=== PATIENT | male | born 1955 | race Caucasian/White ===

== ENCOUNTER 2017-02-22 05:49 | Inpatient (IN) | payer MEDICARE ==
--- NOTE | 2017-02-18 14:47 | MH ---
cc: Jagdish KENYON M.D. DATE OF ADMISSION: 02/22/2017 ADMISSION DIAGNOSIS Osteoarthritic degeneration right knee, now being admitted for right total knee arthroplasty. HISTORY OF PRESENT ILLNESS This is a pleasant 61-year-old diabetic male who is being admitted today for right total knee arthroplasty due to severe painful osteoarthritic degeneration right knee. OTHER PAST HISTORY 1. History of arthritis. 2. Diabetes. 3. Hypertension. 4. Chronic back pain. CURRENT MEDICATIONS Include: 1. Metformin. 2. Cholesterol medicine. 3. Norvasc. 4. Crestor. 5. Percocet for chronic back pain. PAST SURGICAL HISTORY 1. He has previously had two spinal fusions. 2. Surgery in the right knee in the past. SOCIAL HISTORY He smokes cigarettes but does not drink. He is advised to quit. REVIEW OF SYSTEMS Noncontributory. FAMILY HISTORY Noncontributory. ALLERGIES PENICILLIN AND LISINOPRIL. PHYSICAL EXAMINATION GENERAL: We find a 61-year-old male, well-developed, well-nourished, oriented x3, complaining of pain in his right knee. VITAL SIGNS: Blood pressure 108/73, pulse 72 and regular, respiration 14, temperature 98.8. HEENT: Eyes PERRLA, EOMI. Ears, nose, mouth clear. NECK: Supple. LUNGS: Clear. HEART: Regular rate. ABDOMEN: Soft. Positive bowel sounds, nontender. EXTREMITIES: Reveals his right knee to be tender with crepitance on range of motion and loss of motion. IMPRESSION AT THIS TIME Severe painful osteoarthritic degeneration, right knee. PLAN Admission for right total knee arthroplasty. The patient understands the procedure well and risks involved and understands to use Hibiclens scrub and Bactroban preoperatively and is given prescription for postoperative anticoagulation control in the office. He does have pain medication that he takes at home on a regular basis. MD MENDOZA Sparrow/TLL /1:56 PM /2:31 PM
[~2017-02-22] VITALS: Ht 172.7 cm; Wt 105.0 kg
[~2017-02-22 05:49] MED LIST: AMLO10TA2 PO; ATEN50TA7 PO; BACTOIN EACH NARE; DIAZ10TA PO; FENO160T PO; METF1000 PO; PERC10TA27 PO
[2017-02-22] MEDS ORDERED: SODIUM CHLORID 0.9% 500 ML IV PRN (06:15)
[2017-02-22] MEDS ORDERED: INSULIN HUMAN REGULAR 1,000 UNITS/10 ML VIAL SQ PRN (06:15)
[2017-02-22] MEDS ORDERED: POVIDONE IODINE 5% (ANTISEPSIS KIT) 4 APPLICATIONS EACH NARE PRN (06:15)
[2017-02-22] MEDS ORDERED: CHLORHEXIDINE GLUCONATE 2 % 1 PACK (2 CLOTHS) TOPICAL PRN (06:15)
[2017-02-22] MEDS ORDERED: METOPROLOL TARTRATE 25 MG TAB PO PRN (06:15)
[2017-02-22] MEDS ORDERED: LACTATED RINGER'S 1000 ML IV PRN (06:15)
[2017-02-22] MEDS ORDERED: CLINDAMYCIN 900 MG/NS 100 ML IV SCH ×2 (06:30)
[2017-02-22] MEDS ORDERED: TRANEXAMIC ACID INJ 1,150 MG in SODIUM CHLORIDE 0.9% INJ 100 ML IV SCH (06:30)
[2017-02-22] MEDS ORDERED: DEXAMETHASONE SOD PHOS 20 MG/5 ML VIAL IV PRN (06:30)
[2017-02-22] MEDS ORDERED: TRANEXAMIC ACID INJ 1,050 MG in SODIUM CHLORIDE 0.9% INJ 100 ML IV SCH ×4 (06:30)
[2017-02-22] MEDS ORDERED: VANCOMYCIN 1000 MG/NS 250 ML (for <70 kg) IV SCH ×2 (06:30)
[2017-02-22] MEDS ORDERED: CHLORHEXIDINE GLUCONATE 4% SOLN 120 ML BTL TOPICAL SCH (06:30)
[2017-02-22] MEDS ORDERED: EXPAREL PERI-ARTICULAR INJECTION (TOTAL VOL. 120 ML) P-ARTICULR SCH ×2 (06:30)
[2017-02-22] MEDS ORDERED: GENTAMICIN SULFATE 80 MG/2 ML VIAL ONE (06:57)
[2017-02-22 07:08] LABS: AUTOMATED NEUTROPHIL # 6.1 TH/MM3 (1.8-7.7); BASOPHIL # 0.1 TH/MM3 (0-0.2); BASOPHIL % 0.6 % (0.0-2.0); EOSINOPHIL # 0.3 TH/MM3 (0-0.4); EOSINOPHIL % 2.9 % (0.0-4.0); HEMATOCRIT 42.8 % (39.0-51.0); HEMOGLOBIN 14.2 GM/DL (13.0-17.0); LYMPH % 24.2 % (9.0-44.0); LYMPHOCYTE # 2.3 TH/MM3 (1.0-4.8); MEAN CELL VOLUME 79.7 FL (80.0-100.0); MEAN CORPUSCULAR HEMOGLOBIN 26.4 PG (27.0-34.0); MEAN CORPUSCULAR HGB CONC 33.2 % (32.0-36.0); MEAN PLATELET VOLUME 8.8 FL (7.0-11.0); MONO % 7.5 % (0.0-8.0); MONOCYTE # 0.7 TH/MM3 (0-0.9); NEUT % 64.8 % (16.0-70.0); PLATELET COUNT 238 TH/MM3 (150-450); RED BLOOD COUNT 5.37 MIL/MM3 (4.50-5.90); RED CELL DISTRIBUTION WIDTH 15.8 % (11.6-17.2); WHITE BLOOD COUNT 9.4 TH/MM3 (4.0-11.0)
[2017-02-22] MEDS ORDERED: BUPIVACAINE HCL PF 0.5% 30 ML VIAL ONE (07:20)
[2017-02-22] MEDS ORDERED: ACETAMINOPHEN 1000 MG/100 ML 100 ML IV ONE (07:37)
[2017-02-22] MEDS ORDERED: methylPREDNISolone ACETATE 40 MG/ML VIAL IM ONE (08:00)
[2017-02-22] MEDS ORDERED: TEMAZEPAM 15 MG CAP PO PRN (08:15)
[2017-02-22] MEDS ORDERED: diphenhydrAMINE HCL 50 MG/ML VIAL IV PUSH PRN (08:15)
[2017-02-22] MEDS ORDERED: MORPHINE SULFATE 4 MG/ML INJ IV PUSH PRN (08:15)
[2017-02-22] MEDS ORDERED: oxyCODONE/ACETAMINOPHEN 10 MG/325 MG TAB PO PRN (08:15)
[2017-02-22] MEDS ORDERED: NALOXONE HCL 0.4 MG/ML AMP IV PUSH PRN (08:15)
[2017-02-22] MEDS ORDERED: TRANEXAMIC ACID INJ 0 MG in SODIUM CHLORIDE 0.9% INJ 100 ML IV SCH (08:15)
[2017-02-22] MEDS ORDERED: ACETAMINOPHEN 325 MG TAB PO PRN (08:15)
[2017-02-22] MEDS ORDERED: Post-op Orders (for Pharmacy) MISC XX ONE (08:15)
[2017-02-22] MEDS ORDERED: ONDANSETRON HCL 4 MG/2 ML VIAL IVP PRN (08:15)
[2017-02-22] MEDS ORDERED: SODIUM CHLORIDE 0.9% FLUSH 5 ML FLUSH IVF PRN (08:15)
[2017-02-22] MEDS ORDERED: CPMMACHINE (08:18)
[2017-02-22] MEDS ORDERED: WALKER WHEELS/F1 MIS (08:18)
[2017-02-22] MEDS ORDERED: ADJUSTABLE COMM1 MIS (08:18)
--- NOTE | 2017-02-22 08:19 | HHI.FF ---
Face to Face Verification Diagnosis: (1) Status post total right knee replacement Physical Therapy Gait training Knee: Total knee, Protocol: Right, Full weight bearing Canvas Knee Splint: When in bed & 2 pillows btw thighs Nursing RN: 3 days/week x 2 weeks Nursing: Dressing changes Dressing Changes: Daily dressing change, 4x4s, Gauze, Paper tape I have seen patient Moisés Tracy on 02/22/17. My clinical findings support the need for the requested home health care services because: Limited ability to care for self High risk of falls I certify that my clinical findings support that this patient is homebound because: Unsteady gait/balance Jagdish May MD Feb 22, 2017 08:19
[2017-02-22] MEDS ORDERED: TOBRAMYCIN SULFATE 1200 MG VIAL ONE (09:53)
--- NOTE | 2017-02-22 10:55 | MP ---
cc: Jagdish KENYON M.D. DATE OF SURGERY 02/22/2017 PREOPERATIVE DIAGNOSIS Osteoarthritic degeneration right knee. POSTOPERATIVE DIAGNOSIS Osteoarthritic degeneration right knee. SURGERY PERFORMED Right total knee arthroplasty using Consensus components, size 5 femur, 4 tibia, 10 insert and 3 patella with two batches of antibiotic-impregnated cement. SURGEON Dr. Kenyon AGRICULTURAL SERVICES DIRECTOR MIKE Estrella ANESTHESIA General intubation and block. PROCEDURE After successful induction of anesthesia, the patient is placed on the operating room table in the supine position. The knee is prepped and draped in the usual manner. A tourniquet is inflated at the upper thigh and set to 300 mmHg pressure after exsanguination of the lower extremity. A longitudinal incision is made extending from 3 inches proximal to the superior pole of the patella, across the patella in longitudinal fashion, and down past the insertion of the tibial tubercle into the proximal tibia. The incision is carried down through subcutaneous tissue along the medial aspect of the patella and retinaculum, down through the capsule to expose the knee joint. The patella and patellar tendon are freed up enough to allow the patella to be inverted and retracted off the lateral side of the knee joint. The knee joint is left exposed. Small osteophytes are removed. All soft tissue is removed to allow proper position of the femoral and tibial cutting jig guide. The first femoral jig is then inserted along the distal end of the femur after first measuring to decide whether this is a small, medium, or large component. The notch is then drilled and the tibial cutting guide inserted into the femoral cutting guide, along with the ankle brace to allow for proper measurement of the tibial cutting surface that needed to be resected. Pins are inserted into the tibial cutting jig and femoral cutting jig to hold them in place. An oscillating saw is then used to resect the surface of the tibia. The surface of the tibia is then completely removed using sharp and blunt dissection. The anterior and posterior cuts of the femur are then made as well using an oscillating saw through the cutting guide. All guides are then removed and the varus/valgus angulation cutting guide applied to the femur for proper measurement of the proper amount of valgus. The anterior cutting guide for the femur is then inserted at the anterior femoral cuts made. Next, the first block trial is inserted into the femur to allow for proper condyle drill holes to be made which are then made followed by removal of the bone between the condyles using an oscillating saw as well as the bone removed at the most posterior surface of the condyle. After this, this guide is removed and the chamfer cuts made using the chamfer cutting guide from both anterior and posterior. Next, the femoral trial is then inserted, the tibial surface reflected anterior to expose the tibial surface and a tibial stem guide is inserted after first measuring for a standard, standard plus, large, or large plus surface to be used. After the stem is impacted the trial tibial surface is applied followed by the trial meniscal components. After full range of motion is found with the appropriate length meniscal components varying the patella is prepared by resecting the posterior aspect of the patella using an oscillating saw, inserting a trial. The trial is then removed and the cruciate cutting guide applied using the bur to cut the cruciate cuts. After cruciate cuts are made all trials are removed. The wound is irrigated copiously with antibiotic solution and Water Pik and the actual components inserted into place using Consensus components, size 5 femur, 4 tibia, 10 insert and 3 patella with two batches of antibiotic-impregnated cement. After the cement has hardened and the components are found to have full range of motion with no instability, the tourniquet is deflated, total tourniquet time being 58 minutes at 300 mmHg pressure. 100 cc of Exparel was used around the knee joint for extra pain control. Meticulous hemostasis achieved. No drain utilized. The deep fascia was approximated with running #2 Quill and supplemented with #1 Vicryl. The subcutaneous tissue was approximated using interrupted and running 2-0 and 3-0 Monocryl sutures, sterile dressing and knee immobilizer. ESTIMATED BLOOD LOSS 100 cc. COUNTS Sponge and suture counts were correct. COMPONENTS The components used were Consensus components, size 5 femur, 4 tibia, 10 insert and 3 patella with two batches of antibiotic-impregnated cement. The patient tolerated the procedure well and left the Operating Room in satisfactory condition. MIKE López, was present during the entire procedure to include patient positioning and the procedure. The medical necessity of nurse practitioner and graduate assistant athletic trainer was indicated in this case due to the surgical complexity of the case itself. During the surgical case the surgical services manager was working the back table while my surgical appliances salesperson MIKE was directly assisting me. J. MD MENDOZA Hannon/SSB /10:39 AM /10:45 AM
--- NOTE | 2017-02-22 10:55 | MP ---
cc: Jagdish KENYON M.D. DATE OF SURGERY 02/22/2017 PREOPERATIVE DIAGNOSIS Osteoarthritic degeneration right knee. POSTOPERATIVE DIAGNOSIS Osteoarthritic degeneration right knee. SURGERY PERFORMED Right total knee arthroplasty using Consensus components, size 5 femur, 4 tibia, 10 insert and 3 patella with two batches of antibiotic-impregnated cement. SURGEON Dr. Kenyon REFRIGERATOR TESTER MIKE Estrella ANESTHESIA General intubation and block. PROCEDURE After successful induction of anesthesia, the patient is placed on the operating room table in the supine position. The knee is prepped and draped in the usual manner. A tourniquet is inflated at the upper thigh and set to 300 mmHg pressure after exsanguination of the lower extremity. A longitudinal incision is made extending from 3 inches proximal to the superior pole of the patella, across the patella in longitudinal fashion, and down past the insertion of the tibial tubercle into the proximal tibia. The incision is carried down through subcutaneous tissue along the medial aspect of the patella and retinaculum, down through the capsule to expose the knee joint. The patella and patellar tendon are freed up enough to allow the patella to be inverted and retracted off the lateral side of the knee joint. The knee joint is left exposed. Small osteophytes are removed. All soft tissue is removed to allow proper position of the femoral and tibial cutting jig guide. The first femoral jig is then inserted along the distal end of the femur after first measuring to decide whether this is a small, medium, or large component. The notch is then drilled and the tibial cutting guide inserted into the femoral cutting guide, along with the ankle brace to allow for proper measurement of the tibial cutting surface that needed to be resected. Pins are inserted into the tibial cutting jig and femoral cutting jig to hold them in place. An oscillating saw is then used to resect the surface of the tibia. The surface of the tibia is then completely removed using sharp and blunt dissection. The anterior and posterior cuts of the femur are then made as well using an oscillating saw through the cutting guide. All guides are then removed and the varus/valgus angulation cutting guide applied to the femur for proper measurement of the proper amount of valgus. The anterior cutting guide for the femur is then inserted at the anterior femoral cuts made. Next, the first block trial is inserted into the femur to allow for proper condyle drill holes to be made which are then made followed by removal of the bone between the condyles using an oscillating saw as well as the bone removed at the most posterior surface of the condyle. After this, this guide is removed and the chamfer cuts made using the chamfer cutting guide from both anterior and posterior. Next, the femoral trial is then inserted, the tibial surface reflected anterior to expose the tibial surface and a tibial stem guide is inserted after first measuring for a standard, standard plus, large, or large plus surface to be used. After the stem is impacted the trial tibial surface is applied followed by the trial meniscal components. After full range of motion is found with the appropriate length meniscal components varying the patella is prepared by resecting the posterior aspect of the patella using an oscillating saw, inserting a trial. The trial is then removed and the cruciate cutting guide applied using the bur to cut the cruciate cuts. After cruciate cuts are made all trials are removed. The wound is irrigated copiously with antibiotic solution and Water Pik and the actual components inserted into place using Consensus components, size 5 femur, 4 tibia, 10 insert and 3 patella with two batches of antibiotic-impregnated cement. After the cement has hardened and the components are found to have full range of motion with no instability, the tourniquet is deflated, total tourniquet time being 58 minutes at 300 mmHg pressure. 100 cc of Exparel was used around the knee joint for extra pain control. Meticulous hemostasis achieved. No drain utilized. The deep fascia was approximated with running #2 Quill and supplemented with #1 Vicryl. The subcutaneous tissue was approximated using interrupted and running 2-0 and 3-0 Monocryl sutures, sterile dressing and knee immobilizer. ESTIMATED BLOOD LOSS 100 cc. COUNTS Sponge and suture counts were correct. COMPONENTS The components used were Consensus components, size 5 femur, 4 tibia, 10 insert and 3 patella with two batches of antibiotic-impregnated cement. The patient tolerated the procedure well and left the Operating Room in satisfactory condition. MIKE López, was present during the entire procedure to include patient positioning and the procedure. The medical necessity of nurse practitioner and welder first class was indicated in this case due to the surgical complexity of the case itself. During the surgical case the salesperson surgical appliances was working the back table while my ophthalmic surgical assistant MIKE was directly assisting me. J. MD MENDOZA Hannon/SSB /10:39 AM /10:45 AM
--- NOTE | 2017-02-22 10:55 | MP ---
cc: Jagdish KENYON M.D. DATE OF SURGERY 02/22/2017 PREOPERATIVE DIAGNOSIS Osteoarthritic degeneration right knee. POSTOPERATIVE DIAGNOSIS Osteoarthritic degeneration right knee. SURGERY PERFORMED Right total knee arthroplasty using Consensus components, size 5 femur, 4 tibia, 10 insert and 3 patella with two batches of antibiotic-impregnated cement. SURGEON Dr. Kenyon VISUAL COMMUNICATIONS INSTRUCTOR MIKE Estrella ANESTHESIA General intubation and block. PROCEDURE After successful induction of anesthesia, the patient is placed on the operating room table in the supine position. The knee is prepped and draped in the usual manner. A tourniquet is inflated at the upper thigh and set to 300 mmHg pressure after exsanguination of the lower extremity. A longitudinal incision is made extending from 3 inches proximal to the superior pole of the patella, across the patella in longitudinal fashion, and down past the insertion of the tibial tubercle into the proximal tibia. The incision is carried down through subcutaneous tissue along the medial aspect of the patella and retinaculum, down through the capsule to expose the knee joint. The patella and patellar tendon are freed up enough to allow the patella to be inverted and retracted off the lateral side of the knee joint. The knee joint is left exposed. Small osteophytes are removed. All soft tissue is removed to allow proper position of the femoral and tibial cutting jig guide. The first femoral jig is then inserted along the distal end of the femur after first measuring to decide whether this is a small, medium, or large component. The notch is then drilled and the tibial cutting guide inserted into the femoral cutting guide, along with the ankle brace to allow for proper measurement of the tibial cutting surface that needed to be resected. Pins are inserted into the tibial cutting jig and femoral cutting jig to hold them in place. An oscillating saw is then used to resect the surface of the tibia. The surface of the tibia is then completely removed using sharp and blunt dissection. The anterior and posterior cuts of the femur are then made as well using an oscillating saw through the cutting guide. All guides are then removed and the varus/valgus angulation cutting guide applied to the femur for proper measurement of the proper amount of valgus. The anterior cutting guide for the femur is then inserted at the anterior femoral cuts made. Next, the first block trial is inserted into the femur to allow for proper condyle drill holes to be made which are then made followed by removal of the bone between the condyles using an oscillating saw as well as the bone removed at the most posterior surface of the condyle. After this, this guide is removed and the chamfer cuts made using the chamfer cutting guide from both anterior and posterior. Next, the femoral trial is then inserted, the tibial surface reflected anterior to expose the tibial surface and a tibial stem guide is inserted after first measuring for a standard, standard plus, large, or large plus surface to be used. After the stem is impacted the trial tibial surface is applied followed by the trial meniscal components. After full range of motion is found with the appropriate length meniscal components varying the patella is prepared by resecting the posterior aspect of the patella using an oscillating saw, inserting a trial. The trial is then removed and the cruciate cutting guide applied using the bur to cut the cruciate cuts. After cruciate cuts are made all trials are removed. The wound is irrigated copiously with antibiotic solution and Water Pik and the actual components inserted into place using Consensus components, size 5 femur, 4 tibia, 10 insert and 3 patella with two batches of antibiotic-impregnated cement. After the cement has hardened and the components are found to have full range of motion with no instability, the tourniquet is deflated, total tourniquet time being 58 minutes at 300 mmHg pressure. 100 cc of Exparel was used around the knee joint for extra pain control. Meticulous hemostasis achieved. No drain utilized. The deep fascia was approximated with running #2 Quill and supplemented with #1 Vicryl. The subcutaneous tissue was approximated using interrupted and running 2-0 and 3-0 Monocryl sutures, sterile dressing and knee immobilizer. ESTIMATED BLOOD LOSS 100 cc. COUNTS Sponge and suture counts were correct. COMPONENTS The components used were Consensus components, size 5 femur, 4 tibia, 10 insert and 3 patella with two batches of antibiotic-impregnated cement. The patient tolerated the procedure well and left the Operating Room in satisfactory condition. MIKE López, was present during the entire procedure to include patient positioning and the procedure. The medical necessity of nurse practitioner and first dyer was indicated in this case due to the surgical complexity of the case itself. During the surgical case the rn surgical was working the back table while my ophthalmology surgical technician MIKE was directly assisting me. J. MD MENDOZA Hannon/SSB /10:39 AM /10:45 AM
[2017-02-22] MEDS ORDERED: DO NOT ADM ANY ANTICOAGULANT DRUGS PRN (11:08)
[2017-02-22] MEDS ORDERED: *RESP: ALBUTEROL 2.5 MG/3 ML NEB (PRN) PERIprocedural Use ONLY NEB ONE (11:10)
--- NOTE | 2017-02-22 11:11 | HHI.PR ---
Immediate Post Op Note Procedure Date: Feb 22, 2017 Pre Op Diagnosis: Osteoarthritic degeneration right knee Post Op Diagnosis: Osteoarthritic degeneration right knee Surgeon: Justice May MD Deadener(s): Esther MCKEON Procedure: Right Total Knee Arthroplasty Complications: none Specimen(s) removed: none Estimated blood loss: 100cc Anesthesia: General Drains: None IVF Urinary Output (mLs): 0 (no ambriz) Tourniquet time (min at mmHg) 58 mins at 300mmHg Patient to: PACU Patient Condition: Good Implant/Devices: SEE IMPLANT LOG (if applicable) Date/Time of Procedure: SEE SURGICAL CARE RECORD Esther Tyler Feb 22, 2017 11:11
--- NOTE | 2017-02-22 11:11 | HHI.PR ---
Immediate Post Op Note Procedure Date: Feb 22, 2017 Pre Op Diagnosis: Osteoarthritic degeneration right knee Post Op Diagnosis: Osteoarthritic degeneration right knee Surgeon: Justice May MD Associate Loan Officer(s): Esther MCKEON Procedure: Right Total Knee Arthroplasty Complications: none Specimen(s) removed: none Estimated blood loss: 100cc Anesthesia: General Drains: None IVF Urinary Output (mLs): 0 (no ambriz) Tourniquet time (min at mmHg) 58 mins at 300mmHg Patient to: PACU Patient Condition: Good Implant/Devices: SEE IMPLANT LOG (if applicable) Date/Time of Procedure: SEE SURGICAL CARE RECORD Esther Tyler Feb 22, 2017 11:11
[2017-02-22] MEDS ORDERED: *morphine SULFATE 8 MG/ML PERIprocedure ONLY ONE (11:30)
--- NOTE | 2017-02-22 11:35 | RADRPT ---
EXAM DATE/TIME: 02/22/2017 10:20 [facility] COMPARISON: No previous studies available for comparison. INDICATIONS : Post op right knee surgery MEDICAL HISTORY : None. SURGICAL HISTORY : None. ENCOUNTER: Initial ACUITY: 1 day PAIN SCORE: 10/10 LOCATION: Right knee FINDINGS: AP and lateral views of the knee following arthroplasty reveals a prosthesis in anatomic alignment. F racture is not appreciated. Surgical drain is evident CONCLUSION: Status post total knee arthroplasty. Yayo Padilla MD FACR Board Certified Radiologist. This report was verified electronically.
[2017-02-22] MEDS ORDERED: DEXAMETHASONE SOD PHOS PF 10 MG/ML VIAL ONE (11:48)
[2017-02-22] MEDS ORDERED: ROPIVACAINE 0.5% PF INJ 30 ML VIAL ONE (11:50)
[2017-02-22] MEDS ORDERED: LIDOCAINE HCL 1% 30 ML VIAL ONE (11:55)
[2017-02-22] MEDS ORDERED: LIDOCAINE HCL 2% 50 ML VIAL ONE (11:56)
[2017-02-22] MEDS ORDERED: NEOSTIGMINE 3 MG/3 ML SYR IV ONE (12:00)
[2017-02-22] MEDS ORDERED: MIDAZOLAM HCL 2 MG/2 ML VIAL IV ONE (12:00)
[2017-02-22] MEDS ORDERED: GLYCOPYRROLATE 1 MG/5 ML SYRINGE IV PUSH ONE (12:00)
[2017-02-22] MEDS ORDERED: PROPOFOL 200 MG/20 ML AMP IV ONE (12:00)
[2017-02-22] MEDS ORDERED: ROCURONIUM INJ 50 MG/5 ML SYRINGE IV PUSH ONE (12:00)
[2017-02-22] MEDS ORDERED: ONDANSETRON HCL 4 MG/2 ML VIAL IV PUSH ONE (12:00)
[2017-02-22] MEDS ORDERED: LIDOCAINE HCL 1% PF 5 ML AMPULE OTHER ONE (12:00)
--- NOTE | 2017-02-22 12:20 | EKG ---
Date Performed: 02/22/2017 Time Performed: 06:56:45 PTAGE: 61 years EKG: Sinus rhythm NORMAL ECG PREVIOUS TRACING : 04/15/2015 07.36 Compared to the prior study, criteria for inferior infarcti on are no longer present. DOCTOR: Fransico Lang Interpretating Date/Time 02/22/2017 12:14:38
[2017-02-22] MEDS: LACTATED RINGER'S 1000 ML INJ 1,000 ML IV SCH ×2 (12:27→19:53)
[2017-02-22 12:56] VITALS: BP 117/73; PULSE 80; RESP 18; TEMP 96.1; O2SAT 91
[2017-02-22] MEDS: oxyCODONE/ACETAMINOPHEN 10 MG/325 MG TAB PO PRN ×2 (13:54→19:52)
[2017-02-22 16:00] VITALS: BP 127/72; PULSE 93; RESP 18; TEMP 98.5; O2SAT 94
[2017-02-22 16:26] VITALS: O2SAT 92; O2SAT 93
[2017-02-22] MEDS: CLINDAMYCIN INJ 900 MG in SODIUM CHLORIDE 0.9% INJ 100 ML IV SCH (17:45)
[2017-02-22] MEDS: metFORMIN HCL 500 MG TAB PO SCH (17:46)
[2017-02-22] MEDS: FENOFIBRATE 145 MG TAB PO SCH (19:52)
[2017-02-22] MEDS: ATENOLOL/CHLORTHALIDONE 50/25 TAB PO SCH (20:12)
[2017-02-22 21:20] VITALS: BP 124/73; PULSE 100; RESP 20; TEMP 98.3; O2SAT 93
[2017-02-22] MEDS: SODIUM CHLORIDE 0.9% FLUSH 5 ML FLUSH IVF SCH (21:37)
[2017-02-23 00:20] VITALS: BP 116/63; PULSE 96; RESP 20; TEMP 98.7; O2SAT 92
[2017-02-23] MEDS: CLINDAMYCIN INJ 900 MG in SODIUM CHLORIDE 0.9% INJ 100 ML IV SCH ×2 (00:21→08:56)
[2017-02-23] MEDS: oxyCODONE/ACETAMINOPHEN 10 MG/325 MG TAB PO PRN ×5 (00:21→20:25)
[2017-02-23] MEDS: DIAZEPAM 10 MG TAB PO PRN (01:52)
[2017-02-23 04:20] VITALS: BP 108/61; PULSE 89; RESP 18; TEMP 99.6; O2SAT 92
[2017-02-23 05:49] LABS: HEMATOCRIT 37.2 % (39.0-51.0); HEMOGLOBIN 12.5 GM/DL (13.0-17.0)
[2017-02-23 08:00] VITALS: BP 101/59; PULSE 80; RESP 18; TEMP 98.6; O2SAT 92
[2017-02-23] MEDS: metFORMIN HCL 500 MG TAB PO SCH ×2 (08:54→16:11)
[2017-02-23] MEDS: SODIUM CHLORIDE 0.9% FLUSH 5 ML FLUSH IVF SCH ×2 (08:54→20:26)
[2017-02-23] MEDS: LACTATED RINGER'S 1000 ML INJ 1,000 ML IV SCH ×2 (09:00→20:26)
--- NOTE | 2017-02-23 09:42 | PD.ORT.PN ---
Subjective Subjective Remarks Pt having some pain but it's under control with his pain meds. Objective Vitals Vital Signs Date Time Temp Pulse Resp B/P (MAP) Pulse Ox O2 Delivery O2 Flow Rate FiO2 02/23/17 07:25 16 02/23/17 04:20 99.6 89 18 108/61 (77) 92 02/23/17 00:20 98.7 96 20 116/63 (80) 92 02/22/17 21:20 98.3 100 20 124/73 (90) 93 02/22/17 16:26 92 Nasal Cannula 5.00 02/22/17 16:00 98.5 93 18 127/72 (90) 94 02/22/17 14:17 Nasal Cannula 3.00 02/22/17 14:03 Nasal Cannula 2.00 02/22/17 12:58 Nasal Cannula 2.00 02/22/17 12:56 96.1 80 18 117/73 (88) 91 02/22/17 12:47 98.4 81 15 115/72 (86) 93 Nasal Cannula 4 02/22/17 12:15 81 15 117/69 (85) 92 Nasal Cannula 4 02/22/17 12:00 84 17 148/89 (108) 92 Nasal Cannula 6 02/22/17 11:45 79 17 126/75 (92) 93 Simple Mask 8 02/22/17 11:30 76 15 127/76 (93) 90 Simple Mask 8 02/22/17 11:12 98.2 79 15 152/79 (103) 90 Simple Mask 8 I/O 02/22/17 02/22/17 02/22/17 02/23/17 02/23/17 02/23/17 07:00 15:00 23:00 07:00 15:00 23:00 Intake Total 1680 ml 240 ml 940 ml Output Total 3100 ml 350 ml 950 ml Balance -1420 ml -110 ml -10 ml Intake Oral 480 ml 240 ml 480 ml IV Total 1200 ml 460 ml Output Urine Total 350 ml 950 ml Estimated Blood Loss 100 ml Other 3000 ml # Bowel Movements 0 0 Result Diagram: 02/23/17 4810 Objective Remarks Dressing dry and intact. No calf tenderness. NV intact to toes. On CPM at present. Assessment & Plan Ortho Post Op Day #: 1 Problem List: Assessment and Plan Cont PT, plan to dc to SNF in next day or two. Jagdish May MD Feb 23, 2017 09:42
[2017-02-23 11:20] VITALS: O2SAT 92
[2017-02-23] MEDS: APIXABAN 2.5 MG TABLET PO SCH ×2 (11:35→20:26)
[2017-02-23 12:00] VITALS: BP 110/62; PULSE 80; RESP 18; TEMP 98.9; O2SAT 93
[2017-02-23 20:00] VITALS: BP 132/70; PULSE 97; RESP 18; TEMP 100.7; O2SAT 92
[2017-02-23] MEDS: ATENOLOL/CHLORTHALIDONE 50/25 TAB PO SCH (20:25)
[2017-02-23] MEDS: DOCUSATE SODIUM 100 MG CAP PO SCH (20:25)
[2017-02-23] MEDS: MULTIVITAMINS/MINERALS THERAPEUTIC TAB PO SCH (20:26)
[2017-02-23] MEDS: FENOFIBRATE 145 MG TAB PO SCH (20:26)
[2017-02-24 00:45] VITALS: BP 112/62; PULSE 86; RESP 18; TEMP 98.6; O2SAT 93
[2017-02-24] MEDS: oxyCODONE/ACETAMINOPHEN 10 MG/325 MG TAB PO PRN ×5 (00:50→22:34)
--- NOTE | 2017-02-24 07:52 | PD.ORT.PN ---
Subjective Subjective Remarks Pt comfortable today without complaints. Objective Vitals Vital Signs Date Time Temp Pulse Resp B/P (MAP) Pulse Ox O2 Delivery O2 Flow Rate FiO2 02/24/17 00:45 98.6 86 18 112/62 (79) 93 02/23/17 20:00 100.7 97 18 132/70 (90) 92 02/23/17 17:20 16 02/23/17 12:00 98.9 80 18 110/62 (78) 93 02/23/17 11:20 92 21 02/23/17 08:00 98.6 80 18 101/59 (73) 92 I/O 02/23/17 02/23/17 02/23/17 02/24/17 02/24/17 02/24/17 07:00 15:00 23:00 07:00 15:00 23:00 Intake Total 940 ml 440 ml 480 ml Output Total 950 ml 400 ml Balance -10 ml 40 ml 480 ml Intake Oral 480 ml 440 ml 480 ml IV Total 460 ml Output Urine Total 950 ml 400 ml # Voids 1 # Bowel Movements 0 0 0 Result Diagram: 02/23/17 0450 Objective Remarks Dressing dry and intact. No calf tenderness. NV intact to toes. Assessment & Plan Ortho Post Op Day #: 2 Problem List: Assessment and Plan Cont PT, plan to dc to SNF tomorrow. Jagdish May MD Feb 24, 2017 07:52
[2017-02-24 08:00] VITALS: BP 116/64; PULSE 86; RESP 16; TEMP 99.7; O2SAT 92
[2017-02-24] MEDS: SODIUM CHLORIDE 0.9% FLUSH 5 ML FLUSH IVF SCH ×2 (09:00→22:25)
[2017-02-24] MEDS: MULTIVITAMINS/MINERALS THERAPEUTIC TAB PO SCH ×2 (09:06→22:21)
[2017-02-24] MEDS: APIXABAN 2.5 MG TABLET PO SCH ×2 (09:06→22:20)
[2017-02-24] MEDS: metFORMIN HCL 500 MG TAB PO SCH ×2 (09:06→19:08)
[2017-02-24] MEDS: DOCUSATE SODIUM 100 MG CAP PO SCH ×2 (09:06→22:21)
[2017-02-24] MEDS: LACTATED RINGER'S 1000 ML INJ 1,000 ML IV SCH ×2 (10:11→22:35)
[2017-02-24] MEDS ORDERED: BACITRACIN OINT 0.9 GM PKT TOP PRN (10:15)
[2017-02-24 11:14] VITALS: O2SAT 92
[2017-02-24 12:00] VITALS: BP 114/69; PULSE 79; RESP 18; TEMP 98.8; O2SAT 94
[2017-02-24 16:25] VITALS: BP 107/65; PULSE 80; RESP 16; TEMP 99.5; O2SAT 94
[2017-02-24 16:41] LABS: HEMATOCRIT 37.8 % (39.0-51.0); HEMOGLOBIN 12.3 GM/DL (13.0-17.0)
[2017-02-24 19:45] VITALS: BP 103/75; PULSE 89; RESP 15; TEMP 98.7; O2SAT 94
[2017-02-24] MEDS: FENOFIBRATE 145 MG TAB PO SCH (22:20)
[2017-02-24] MEDS: ATENOLOL/CHLORTHALIDONE 50/25 TAB PO SCH (22:20)
[2017-02-24] MEDS: DIAZEPAM 10 MG TAB PO PRN (23:55)
[2017-02-25] VITALS: BP 121/74; PULSE 87; RESP 16; TEMP 98.9; O2SAT 92
[2017-02-25] MEDS: oxyCODONE/ACETAMINOPHEN 10 MG/325 MG TAB PO PRN ×3 (03:02→11:19)
[2017-02-25] MEDS: metFORMIN HCL 500 MG TAB PO SCH (07:46)
[2017-02-25] MEDS: MULTIVITAMINS/MINERALS THERAPEUTIC TAB PO SCH (07:48)
[2017-02-25] MEDS: DOCUSATE SODIUM 100 MG CAP PO SCH (07:48)
[2017-02-25] MEDS: APIXABAN 2.5 MG TABLET PO SCH (07:48)
[2017-02-25 08:00] VITALS: BP 101/56; PULSE 75; RESP 18; TEMP 98.1; O2SAT 92
[2017-02-25] MEDS: LACTATED RINGER'S 1000 ML INJ 1,000 ML IV SCH (08:33)
[2017-02-25] MEDS: SODIUM CHLORIDE 0.9% FLUSH 5 ML FLUSH IVF SCH (08:33)
[2017-02-25] MEDS ORDERED: MAGNESIUM HYDROXIDE SUSP 30 ML CUP PO SCH (09:00)
[2017-02-25] MEDS ORDERED: BISACODYL EC 5 MG TABEC PO SCH (09:00)
[2017-02-25] MEDS ORDERED: LACTULOSE SYRUP 20 GM/30 ML CUP PO SCH (09:00)
[2017-02-25] MEDS ORDERED: OXYC1TAB36 PO (10:35)
[2017-02-25] MEDS ORDERED: APIX2.5T PO (11:07)
--- NOTE | 2017-02-25 22:00 | HHI.DS ---
Discharge Summary Admission Date Feb 22, 2017 at 05:49 Discharge Date: Feb 25, 2017 Admitting Diagnosis osteoarthritic degeneration right knee. Diagnosis: (1) Status post total right knee replacement Diagnosis: Principal ICD Codes: Z96.651 - Presence of right artificial knee joint Brief History This is a 61 year old male patient CBC/BMP: 02/24/17 1601 Significant Findings Laboratory Tests Test 02/23/17 04:50 02/24/17 16:01 Hemoglobin 12.5 GM/DL (13.0-17.0) 12.3 GM/DL (13.0-17.0) Hematocrit 37.2 % (39.0-51.0) 37.8 % (39.0-51.0) PE at Discharge Dressing dry and intact. No calf tenderness. NV intact to toes. Hospital Course Patient underwent a right total knee arthroplasty on day of admission. He received a course of prophylactic IV antibiotics and was started on anticoagulation therapy within 23 hours after surgery. He continued to improve, tolerating food and fluids well and PO pain meds. He was discharged to SNF on POD #3 in good condition for continuation of care. Pt Condition on Discharge: Good Discharge Disposition: Discharge to SNF Discharge Instructions Diet Instructions: As Tolerated, No Restrictions Activities You Can Perform: Full Weight Bearing, Shower Only-No Bath Activities to Avoid: Bathing, Driving Jagdish May MD Feb 25, 2017 22:00
== END 2017-02-25 11:59 | DRG 470 ==
LOC: HSDI 05:49 → N06A 12:59
PROVIDERS: ADMIT Surgery; ATTEND Surgery
PROC: 0SRC0J9 Replacement of Right Knee Joint with Synthetic Substitute, Cemented, Open Approach (ICD-10-PCS; principal; 2017-02-22 08:00)
DX: M17.11 Unilateral primary osteoarthritis, right knee (principal); I10 Essential (primary) hypertension; E11.9 Type 2 diabetes mellitus without complications; F17.210 Nicotine dependence, cigarettes, uncomplicated; E66.9 Obesity, unspecified; Z68.35 Body mass index [BMI] 35.0-35.9, adult; Z79.84 Long term (current) use of oral hypoglycemic drugs
CPT/HCPCS: 73560; 85014; 85018; 85025; 86850; 86900; 86901; 93005; 94150; C1776; C9290; J0131; J1030; J1100; J1580; J2250; J2270; J2405; J2710; J2795; J3010; J3260; J3370; J7050; J7120; J7613; L1830